=== PATIENT | female | born 1970 | race Caucasian/White ===

== ENCOUNTER 2016-12-20 11:15 | Day surgery (SDC) | END 2016-12-20 16:17 | disposition home or self-care (01) | DX: N72 Inflammatory disease of cervix uteri (principal); N84.0 Polyp of corpus uteri | CPT/HCPCS: 58558; 84703; 85025; 88305; 93005; J0690; J1100; J1170; J2001; J2175; J2250; J2405; J2710; J2765; J3010; Z7512; Z7610 ==

== ENCOUNTER 2018-01-28 05:42 | Day surgery (SDC) | END 2018-01-28 11:52 | disposition home or self-care (01) ==

== ENCOUNTER 2018-08-18 08:35 | Day surgery (SDC) | END 2018-08-18 13:05 | disposition home or self-care (01) ==

== ENCOUNTER 2019-08-04 05:47 | Day surgery (SDC) | payer OTHER ==
[2019-08-04] VITALS (11 sets, daily range): BP systolic 93–140; BP diastolic 62–82; PULSE 73–94; RESP 15–20; Ht 160 cm; Wt 76.7 kg
[~2019-08-04] VITALS: Ht 160 cm; Wt 76.7 kg
[2019-08-04] MEDS ORDERED: LACTATED RINGER'S 1,000 ML IV SCH (07:00)
[2019-08-04] MEDS ORDERED: MIDAZOLAM 1 MG/ML 2 ML INJ ONE (07:57)
[2019-08-04] MEDS ORDERED: LIDOCAINE 2% (SDV) 5 ML INJ ONE (07:57)
[2019-08-04] MEDS ORDERED: DESFLURANE 15 MIN ONE (07:57)
[2019-08-04] MEDS ORDERED: FENTAnyl 50 MCG/ML VIAL ONE (07:57)
[2019-08-04] MEDS ORDERED: PROPOFOL 20 ML ONE (07:57)
[2019-08-04] MEDS ORDERED: ONDANSETRON 4 MG INJ IV PRN (08:00)
[2019-08-04] MEDS ORDERED: HYDROmorphONE 1 MG/5 ML IV SYRINGE IV PRN ×2 (08:00)
[2019-08-04] MEDS ORDERED: OXYCODONE/ACETAMINOPHEN (5/325) TAB PO PRN ×2 (08:00)
[2019-08-04] MEDS ORDERED: CEFAZOLIN 1 GM INJ ONE (08:06)
[2019-08-04] MEDS ORDERED: ONDANSETRON 4 MG INJ ONE (08:08)
[2019-08-04] MEDS ORDERED: METOCLOPRAMIDE 10 MG INJ ONE (08:08)
[2019-08-04] MEDS ORDERED: SUCCINYLCHOLINE CHLORIDE 100 MG/5 ML SYG IV ONE (08:45)
== END 2019-08-04 11:10 | disposition home or self-care (01) ==
LOC: SDS 05:47
PROVIDERS: ATTEND Obstetrics & Gynecology
DX: N95.0 Postmenopausal bleeding (principal)
CPT/HCPCS: 58563; 84703; 85025; 85610; 85730; 86850; 86900; 86901; 88305; J0690; J1170; J2250; J2405; J2765; J3010; Z7512; Z7610